=== PATIENT | female | born 2000 | race Hispanic/Latino ===

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

== ENCOUNTER 2023-10-27 15:50 | Emergency (ER) | payer SELFPAY ==
--- OUTSIDE RECORDS SUMMARY | 2023-10-27 15:55 | XMS REPORT | Continuity of Care Document ---
Author Name Unknown Address [address] [facility] [place] [address] [facility] Address [address] [facility] [place] [address] Care Team Providers Care Inorganic Chemist Name Role Phone URMILA HENAO Primary Care Physician Unav ailable URMILA HENAO Attending Clinician Unavail able Earlene WHUrmila ALCAZAR Attending Clinician + Doctor Unassigned, [place] Attending Clinician U navailable Catalina Hook Attending Clinician [phone] Nurse, Arnaldo Rmchp Exp Cprit Obgyn Attending Clini tima Unavailable CATALINA SCOTT Attending Clinician Unavailmike sebastian Provider, [facility] Temp Attending Clinician Hillary vailable Pgy1 Attending Clinician Unavailable Gio Ellis MD Attending Clinician [phone] GIO ELLIS Attending Clinician Unavail able MORE HOWARD Attending Clinician Unavaila ble Pgy2 Attending Clinician Unavailable Only, Arnaldo Db Test Attending Clinician UnavailEvgeny Escobar MD Attending Clinician [phone] EVGENY BENITO Attending Clinician Unavailable CHRIS HIGHTOWER Attending Clinician Unavailable Chris Montes Attending Clinician [phone] VAISHNAVI YEE Attending Clinician Unavailable Vaishnavi Yee DO Attending Clinician [phone] FELIZ TAY Attending Clinician UnavailCora Lares MD Attending Clinician [phone] KESHIA HARRISON Attending Clinician UnavailMIRYAM Gandhi Admitting Clinician Unavailable CODY PATTEN Admitting Clinician Unavailable Cora Garcia MD Admitting Clinician [phone] Payers Payer Name Policy Type Policy Number Effective Date Expirati on Date Source [employer]ICA[employer] [id number] 2018 00:00:00 Problems Condition Name Condition Details Condition Category Status Onset Date Resolution Date Last Treatment Date Treating Clinician Comments Source Other general counseling and advice for contracept lyudmila management Other general counseling and advice for contracept lyudmila management Disease Active 2- [facility] IUD (intrauter ine device) in place IUD (intrauter ine device) in place Disease Active 2-25 00:00: 00 [facility] Well woman exam Well woman exam Disease Active 2-04 00:00: 00 [facility] Obesity (BMI 30-39.9) Obesity (BMI 30-39.9) Disease Active 1-14 00:00: 00 [facility] Allergies, Adverse Reactions, Alerts Allergy Name Allergy Type Status Severity Reaction(s) Onset Date Inactive Date Treating Clinician Comments Source NO KNOWN ALLERGIE S Drug Class Active [facility] Social History Social Habit Start Date Stop Date Quantity Comments Source ASSERTION [facility] to SARS-CoV-2 (event) 2022-06-29 00:00:00 2022-07-09 13:52:[address] [facility] Alcohol intake 2022-07-09 00:00:00 2022-07-09 00:00:00 Current non-drinker of alcohol (finding) [facility] History of Social function 2022-07-09 00:00:00 2022-07-09 00:00:[address] [facility] Tobacco use and exposure 2022-06-11 00:00:00 2022-06-11 00:00:00 Smokeless tobacco non-user [facility] Sex Assigned At 2002 00:00:00 2002 00:00:[address] [facility] Smoking Status Start Date Stop Date Source Never smoked tobacco [facility] Medications Ordered Medication Name Filled Medication Name Start Date Stop Date Current Medication? Ordering Clinician Indication Dosage Frequency Signature (SIG) Comments Components Source levonorgest reL (KYLEENA) IUD 1 Device 3-10 23:15: 00 07-10 22:32 :00 No [id number] 1{devic e} [facility] norethindro ne-ethinyl estradiol (LOESTRIN 1/20, 21,) 1-20 mg-mcg per tablet 08-30 00:00: 00 Yes [id number] 1{tbl} Take 1 tablet by mouth daily. [facility] ondansetron (ZOFRAN ODT) 4 mg disintegrat ing tablet 2020-05 2 00:00: 00 Yes [id number] 4mg Take 1 tablet by mouth every 6 (six) hours as needed for Nausea and Vomiting (N/V). [facility] Immunizations Ordered Immunization Name Filled Immunization Name Date Status Comments Source HPV9 2021-07-03 00:00:[address] [facility] HPV9 2021-07-03 00:00:00 Completed [facility] 2021-07-03 00:00:00 Completed [facility] 2021-07-03 00:00:00 Completed [facility] 2021-07-03 00:00:[address] [facility] HPV9 2021-07-03 00:00:[address] [facility] HPV9 2021-07-03 00:00:[address] [facility] HPV9 2021-07-03 00:00:[address] [facility] HPV9 2021-07-03 00:00:00 Completed [facility] 2021-07-03 00:00:[address] [facility] HPV9 2021-07-03 00:00:00 Completed [facility] HPV9 2021-07-03 00:00:[address] [facility] HPV9 2021-07-03 00:00:[address] [facility] HPV9 2021-07-03 00:00:[address] [facility] HPV9 2020-06-28 00:00:[address] [facility] HPV9 2020-06-28 00:00:[address] [facility] HPV9 2020-06-28 00:00:[address] [facility] HPV9 2020-06-28 00:00:[address] [facility] HPV9 2020-06-28 00:00:[address] [facility] HPV9 2020-06-28 00:00:[address] [facility] HPV9 2020-06-28 00:00:[address] [facility] HPV9 2020-06-28 00:00:[address] [facility] HPV9 2020-06-28 00:00:[address] [facility] HPV9 2020-06-28 00:00:[address] [facility] HPV9 2020-06-28 00:00:[address] [facility] HPV9 2020-06-28 00:00:[address] [facility] HPV9 2020-06-28 00:00:[address] [facility] HPV9 2020-06-28 00:00:[address] [facility] TDAP 2020-03-16 00:00:[address] [facility] TDAP 2020-03-16 00:00:[address] [facility] TDAP 2020-03-16 00:00:[address] [facility] TDAP 2020-03-16 00:00:00 Completed [facility] TDAP 2020-03-16 00:00:00 Completed [facility] TDAP 2020-03-16 00:00:[address] [facility] TDAP 2020-03-16 00:00:[address] [facility] TDAP 2020-03-16 00:00:[address] [facility] TDAP 2020-03-16 00:00:[address] [facility] TDAP 2020-03-16 00:00:[address] [facility] TDAP 2020-03-16 00:00:[address] [facility] TDAP 2020-03-16 00:00:[address] [facility] TDAP 2020-03-16 00:00:[address] [facility] TDAP 2020-03-16 00:00:[address] [facility] Influenza Virus Vaccine Quad .5 mL IM 6+ MO 2020-02-17 00:00:[address] [facility] Influenza Virus Vaccine Quad .5 mL IM 6+ MO 2020-02-17 00:00:[address] [facility] Influenza Virus Vaccine Quad .5 mL IM 6+ MO 2020-02-17 00:00:[address] [facility] Influenza Virus Vaccine Quad .5 mL IM 6+ MO 2020-02-17 00:00:[address] [facility] Influenza Virus Vaccine Quad .5 mL IM 6+ MO 2020-02-17 00:00:[address] [facility] Influenza Virus Vaccine Quad .5 mL IM 6+ MO 2020-02-17 00:00:[address] [facility] Influenza Virus Vaccine Quad .5 mL IM 6+ MO 2020-02-17 00:00:[address] [facility] Influenza Virus Vaccine Quad .5 mL IM 6+ MO 2020-02-17 00:00:[address] [facility] Influenza Virus Vaccine Quad .5 mL IM 6+ MO 2020-02-17 00:00:[address] [facility] Influenza Virus Vaccine Quad .5 mL IM 6+ MO 2020-02-17 00:00:[address] [facility] Influenza Virus Vaccine Quad .5 mL IM 6+ MO 2020-02-17 00:00:[address] [facility] Influenza Virus Vaccine Quad .5 mL IM 6+ MO 2020-02-17 00:00:[address] [facility] Influenza Virus Vaccine Quad .5 mL IM 6+ MO 2020-02-17 00:00:[address] [facility] Influenza Virus Vaccine Quad .5 mL IM 6+ MO 2020-02-17 00:00:[address] [facility] Influenza Virus Vaccine Quad .5 mL IM 6+ MO 2019-02-11 00:00:[address] [facility] Influenza Virus Vaccine Quad .5 mL IM 6+ MO 2019-02-11 00:00:[address] [facility] Influenza Virus Vaccine Quad .5 mL IM 6+ MO 2019-02-11 00:00:[address] [facility] Influenza Virus Vaccine Quad .5 mL IM 6+ MO 2019-02-11 00:00:[address] [facility] Influenza Virus Vaccine Quad .5 mL IM 6+ MO 2019-02-11 00:00:[address] [facility] Influenza Virus Vaccine Quad .5 mL IM 6+ MO 2019-02-11 00:00:[address] [facility] Influenza Virus Vaccine Quad .5 mL IM 6+ MO 2019-02-11 00:00:[address] [facility] Influenza Virus Vaccine Quad .5 mL IM 6+ MO 2019-02-11 00:00:[address] [facility] Influenza Virus Vaccine Quad .5 mL IM 6+ MO 2019-02-11 00:00:[address] [facility] Influenza Virus Vaccine Quad .5 mL IM 6+ MO 2019-02-11 00:00:[address] [facility] Influenza Virus Vaccine Quad .5 mL IM 6+ MO 2019-02-11 00:00:[address] [facility] Influenza Virus Vaccine Quad .5 mL IM 6+ MO 2019-02-11 00:00:[address] [facility] Influenza Virus Vaccine Quad .5 mL IM 6+ MO 2019-02-11 00:00:[address] [facility] Influenza Virus Vaccine Quad .5 mL IM 6+ MO 2019-02-11 00:00:[address] [facility] TDAP (ADACEL) VACCINE 2018-12-17 00:00:[address] [facility] TDAP (ADACEL) VACCINE 2018-12-17 00:00:[address] [facility] TDAP (ADACEL) VACCINE 2018-12-17 00:00:[address] [facility] TDAP (ADACEL) VACCINE 2018-12-17 00:00:[address] [facility] TDAP (ADACEL) VACCINE 2018-12-17 00:00:[address] [facility] TDAP (ADACEL) VACCINE 2018-12-17 00:00:[address] [facility] TDAP (ADACEL) VACCINE 2018-12-17 00:00:[address] [facility] TDAP (ADACEL) VACCINE 2018-12-17 00:00:[address] [facility] TDAP (ADACEL) VACCINE 2018-12-17 00:00:[address] [facility] TDAP (ADACEL) VACCINE 2018-12-17 00:00:[address] [facility] TDAP (ADACEL) VACCINE 2018-12-17 00:00:[address] [facility] TDAP (ADACEL) VACCINE 2018-12-17 00:00:[address] [facility] TDAP (ADACEL) VACCINE 2018-12-17 00:00:[address] [facility] TDAP (ADACEL) VACCINE 2018-12-17 00:00:[address] [facility] HPV9 2015-12-03 00:00:[address] [facility] HPV9 2015-12-03 00:00:[address] [facility] Influenza Virus Vaccine Quad .5 mL IM 6+ MO 2014-02-17 00:00:[address] [facility] Influenza Virus Vaccine Quad .5 mL IM 6+ MO 2014-02-17 00:00:[address] [facility] HPV 2013-10-24 00:00:[address] [facility] Meningococcal Polysaccharide (groups A, C, Y and W-135) conjugate vaccine (MCV4P) 2013-10-24 00:00:[address] [facility] TDAP 2013-10-24 00:00:[address] [facility] Varicella (varivax)(chicken pox) 2013-10-24 00:00:[address] [facility] HPV 2013-10-24 00:00:[address] [facility] Meningococcal Polysaccharide (groups A, C, Y and W-135) conjugate vaccine (MCV4P) 2013-10-24 00:00:[address] [facility] TDAP 2013-10-24 00:00:[address] [facility] Varicella (varivax)(chicken pox) 2013-10-24 00:00:[address] [facility] HEPATITIS A 2005-02-04 00:00:[address] [facility] Pneumococcal 7 Conjugate, PCV7 (Prevnar7) 2005-02-04 00:00:[address] [facility] HEPATITIS A 2005-02-04 00:00:[address] [facility] Pneumococcal 7 Conjugate, PCV7 (Prevnar7) 2005-02-04 00:00:[address] [facility] DTaP, Unspecified Formulation 2004-01-10 00:00:[address] [facility] HIB 4 Dose Schedule 2004-01-10 00:00:[address] [facility] IPV 2004-01-10 00:00:[address] [facility] DTaP, Unspecified Formulation 2004-01-10 00:00:[address] [facility] HIB 4 Dose Schedule 2004-01-10 00:00:[address] [facility] IPV 2004-01-10 00:00:[address] [facility] MMR 2003-02-08 00:00:[address] [facility] Varicella (varivax)(chicken pox) 2003-02-08 00:00:[address] [facility] MMR 2003-02-08 00:00:[address] [facility] Varicella (varivax)(chicken pox) 2003-02-08 00:00:[address] [facility] Pneumococcal 7 Conjugate, PCV7 (Prevnar7) 2002 00:00:[address] [facility] Pneumococcal 7 Conjugate, PCV7 (Prevnar7) 2002 00:00:[address] [facility] DTaP, Unspecified Formulation 2002 00:00:[address] [facility] HIB 4 Dose Schedule 2002 00:00:[address] [facility] Pneumococcal 7 Conjugate, PCV7 (Prevnar7) 2002 00:00:[address] [facility] IPV 2002 00:00:[address] [facility] DTaP, Unspecified Formulation 2002 00:00:[address] [facility] HIB 4 Dose Schedule 2002 00:00:[address] [facility] Pneumococcal 7 Conjugate, PCV7 (Prevnar7) 2002 00:00:[address] [facility] IPV 2002 00:00:[address] [facility] Hep B, Adol or Pedi Dosage 2002 00:00:[address] [facility] Hep B, Adol or Pedi Dosage 2002 00:00:[address] [facility] TDAP (ADACEL) VACCINE Unknown Completed [facility] Influenza Virus Vaccine Quad .5 mL IM 6+ MO (FLUZONE/FLULAVAL/FL UARIX) Unknown Completed [facility] Influenza Virus Vaccine Quad .5 mL IM 6+ MO (FLUZONE/FLULAVAL/FL UARIX) Unknown Completed [facility] TDAP Unknown Completed [facility] DTaP, Unspecified Formulation Unknown Completed [facility] DTaP, Unspecified Formulation Unknown Completed [facility] Influenza Virus Vaccine Quad .5 mL IM 6+ MO (FLUZONE/FLULAVAL/FL UARIX) Unknown Completed [facility] HEPATITIS A Unknown Completed [facility] Hep B, Adol or Pedi Dosage Unknown Completed [facility] HIB 4 Dose Schedule Unknown Completed [facility] HIB 4 Dose Schedule Unknown Completed [facility] HPV Unknown Completed [facility] HPV9 Unknown Completed [facility] Meningococcal Polysaccharide (groups A, C, Y and W-135) conjugate vaccine (MCV4P) Unknown Completed [facility] MMR Unknown Completed [facility] Pneumococcal 7 Conjugate, PCV7 (Prevnar7) Unknown Completed [facility] Pneumococcal 7 Conjugate, PCV7 (Prevnar7) Unknown Completed [facility] Pneumococcal 7 Conjugate, PCV7 (Prevnar7) Unknown Completed [facility] IPV Unknown Completed [facility] IPV Unknown Completed [facility] TDAP Unknown Completed [facility] Varicella (varivax)(chicken pox) Unknown Completed [facility] Varicella (varivax)(chicken pox) Unknown Completed [facility] TDAP (ADACEL) VACCINE Unknown Completed [facility] Influenza Virus Vaccine Quad .5 mL IM 6+ MO (FLUZONE/FLULAVAL/FL UARIX) Unknown Completed [facility] Influenza Virus Vaccine Quad .5 mL IM 6+ MO (FLUZONE/FLULAVAL/FL UARIX) Unknown Completed [facility] TDAP Unknown Completed [facility] HPV9 Unknown Completed [facility] HPV9 Unknown Completed [facility] DTaP, Unspecified Formulation Unknown Completed [facility] DTaP, Unspecified Formulation Unknown Completed [facility] Influenza Virus Vaccine Quad .5 mL IM 6+ MO (FLUZONE/FLULAVAL/FL UARIX) Unknown Completed [facility] HEPATITIS A Unknown Completed [facility] Hep B, Adol or Pedi Dosage Unknown Completed [facility] HIB 4 Dose Schedule Unknown Completed [facility] HIB 4 Dose Schedule Unknown Completed [facility] HPV Unknown Completed [facility] HPV9 Unknown Completed [facility] Meningococcal Polysaccharide (groups A, C, Y and W-135) conjugate vaccine (MCV4P) Unknown Completed [facility] MMR Unknown Completed [facility] Pneumococcal 7 Conjugate, PCV7 (Prevnar7) Unknown Completed [facility] Pneumococcal 7 Conjugate, PCV7 (Prevnar7) Unknown Completed [facility] Pneumococcal 7 Conjugate, PCV7 (Prevnar7) Unknown Completed [facility] IPV Unknown Completed [facility] IPV Unknown Completed [facility] TDAP Unknown Completed [facility] Varicella (varivax)(chicken pox) Unknown Completed [facility] Varicella (varivax)(chicken pox) Unknown Completed [facility] TDAP (ADACEL) VACCINE Unknown Completed [facility] Influenza Virus Vaccine Quad .5 mL IM 6+ MO (FLUZONE/FLULAVAL/FL UARIX) Unknown Completed [facility] Influenza Virus Vaccine Quad .5 mL IM 6+ MO (FLUZONE/FLULAVAL/FL UARIX) Unknown Completed [facility] TDAP Unknown Completed [facility] HPV9 Unknown Completed [facility] HPV9 Unknown Completed [facility] DTaP, Unspecified Formulation Unknown Completed [facility] DTaP, Unspecified Formulation Unknown Completed [facility] Influenza Virus Vaccine Quad .5 mL IM 6+ MO (FLUZONE/FLULAVAL/FL UARIX) Unknown Completed [facility] HEPATITIS A Unknown Completed [facility] Hep B, Adol or Pedi Dosage Unknown Completed [facility] HIB 4 Dose Schedule Unknown Completed [facility] HIB 4 Dose Schedule Unknown Completed [facility] HPV Unknown Completed [facility] HPV9 Unknown Completed [facility] Meningococcal Polysaccharide (groups A, C, Y and W-135) conjugate vaccine (MCV4P) Unknown Completed [facility] MMR Unknown Completed [facility] Pneumococcal 7 Conjugate, PCV7 (Prevnar7) Unknown Completed [facility] Pneumococcal 7 Conjugate, PCV7 (Prevnar7) Unknown Completed [facility] Pneumococcal 7 Conjugate, PCV7 (Prevnar7) Unknown Completed [facility] IPV Unknown Completed [facility] IPV Unknown Completed [facility] TDAP Unknown Completed [facility] Varicella (varivax)(chicken pox) Unknown Completed [facility] Varicella (varivax)(chicken pox) Unknown Completed [facility] Vital Signs Vital Name Observation Time Observation Value Comments S ource Systolic blood pressure 2023-02-17 18:31:00 110 mm[Hg] [facility] Diastolic blood pressure 2023-02-17 18:31:00 72 mm[Hg] [facility] Heart rate 2023-02-17 18:31:00 86 /min [facility] Body temperature 2023-02-17 18:31:[address] [facility] Respiratory rate 2023-02-17 18:31:00 17 /min [facility] Body height 2023-02-17 18:31:00 149.9 cm [facility] Body weight 2023-02-17 18:31:00 75.025 kg [facility] BMI 2023-02-17 18:31:00 33.41 kg/m2 [facility] Systolic blood pressure 2022-07-09 19:52:00 103 mm[Hg] [facility] Diastolic blood pressure 2022-07-09 19:52:00 68 mm[Hg] [facility] Heart rate 2022-07-09 19:52:00 81 /min [facility] Body temperature 2022-07-09 19:52:[address] [facility] Respiratory rate 2022-07-09 19:52:00 18 /min [facility] Body height 2022-07-09 19:52:00 149.9 cm [facility] Body weight 2022-07-09 19:52:00 73.392 kg [facility] BMI 2022-07-09 19:52:00 32.68 kg/m2 [facility] Systolic blood pressure 2022-06-11 15:45:00 120 mm[Hg] [facility] Diastolic blood pressure 2022-06-11 15:45:00 75 mm[Hg] [facility] Heart rate 2022-06-11 15:45:00 85 /min [facility] Body temperature 2022-06-11 15:45:[address] [facility] Respiratory rate 2022-06-11 15:45:00 18 /min [facility] Body height 2022-06-11 15:45:00 149.9 cm [facility] Body weight 2022-06-11 15:45:00 70.943 kg [facility] BMI 2022-06-11 15:45:00 31.59 kg/m2 [facility] Systolic blood pressure 2021-08-30 19:04:00 123 mm[Hg] [facility] Diastolic blood pressure 2021-08-30 19:04:00 85 mm[Hg] [facility] Heart rate 2021-08-30 19:04:00 96 /min [facility] Body temperature 2021-08-30 19:04:[address] [facility] Body height 2021-08-30 19:04:00 149.9 cm [facility] Body weight 2021-08-30 19:04:00 75.116 kg [facility] BMI 2021-08-30 19:04:00 33.45 kg/m2 [facility] Body mass index (BMI) [Percentile] Per age and sex 2021-08-30 19:04:00 96.41 % [facility] Procedures Procedure Date / Time Performed Performing Clinicia n Source POCT TEST 2022-07-09 19:54:00 Earl Henao [facility] PATIENT FINANCIAL POLICY 2022-07-09 19:38:04 Doctor Unassigned, [place] [facility] POCT TEST 2022-06-11 16:16:[address] [facility] ASSIGNMENT OF BENEFITS 2022-06-11 15:19:02 Docto r Unassigned, [place] [facility] DISCLOSURE AND CONSENT, MEDICAL AND SURGICAL PROCEDURES 2021-08-30 05:01:00 Doctor Unassigned, [place] [facility] Encounters Start Date/Time End Date/Time Encounter Type Admission Type Attending [facility] Emergency Department Facility Care Department Encounter ID Source 2021-03-03 16:31:27 Emergency [facility] [id number] [facility] 2021-03-02 07:53:51 Outpatient P [facility] [id number] [facility] 2021-03-02 07:53:31 Outpatient P [facility] OB [id number] [facility] 2021-03-02 04:35:47 Outpatient P [facility] KENNETH [id number] [facility] 2023-07-13 14:30:00 2023-07-13 14:30:00 Outpatient R URMILA HENAO [facility] [id number] [facility] 2023-02-17 13:30:00 2023-02-17 13:57:49 Outpatient R URMILA HENAO [facility] [id number] [facility] 2023-02-17 13:30:00 2023-02-17 13:57:49 Office Visit Urmila Henao [facility] 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 [facility] [id number] 350.1.13.10 4.2.7.2.686 [id number] [facility] 2022-12-10 08:15:00 2022-12-10 08:15:00 Outpatient R URMILA HENAO [facility] [id number] [facility] 2022-10-15 13:30:00 2022-10-15 13:30:00 Outpatient R URMILA HENAO [facility] [id number] [facility] 2022-08-20 08:00:00 2022-08-20 08:00:00 Outpatient R URMILA HENAO [facility] [id number] [facility] 2022-07-09 13:45:00 2022-07-09 14:37:02 Outpatient R URMILA HENAO [facility] [id number] [facility] 2022-07-09 13:45:00 2022-07-09 14:37:02 Office Visit Urmila Henao [facility] 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 [facility]ILD [facility] 1.840.114 350.1.13.10 4.2.7.2.686 [id number] [facility] 2022-07-09 00:00:00 2022-07-09 00:00:00 Orders Only Doctor Unassigned, [place] [facility] 1.840.114 350.1.13.10 4.2.7.2.686 [id number] [facility] 2022-06-11 09:30:00 2022-06-11 10:17:06 Outpatient R URMILA HENAO [facility] [id number] [facility] 2022-06-11 09:30:00 2022-06-11 10:17:06 Office Visit Urmila Henao [facility] 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 [facility] 1.840.114 350.1.13.10 4.2.7.2.686 [id number] [facility] 2022-06-11 00:00:00 2022-06-11 00:00:00 Orders Only Doctor Unassigned, [place] [facility] 1.840.114 350.1.13.10 4.2.7.2.686 [id number] [facility] 2022-04-16 00:00:00 2022-04-16 00:00:00 Catalina Bonilla [facility] .0.114 350.1.13.10 4.2.7.2.686 [id number] [facility] 2022-02-19 09:30:00 2022-02-19 09:30:00 Outpatient R URMILA HENAO [facility] [id number] [facility] 2021-12-18 15:00:00 2021-12-18 15:00:00 Outpatient R [facility] [id number] [facility] 2021-12-16 00:00:00 2021-12-16 00:00:00 Telephone Nurse, Arnaldo Rmchp Exp Cprit Obgyn [facility] 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 [facility] ..840.114 350.1.13.10 4.2.7.2.686 [id number] [facility] 2021-12-05 15:30:00 2021-12-05 15:30:00 Outpatient R [facility] [id number] [facility] 2021-12-04 15:00:00 2021-12-04 15:00:00 Outpatient R URMILA HENAO [facility] [id number] [facility] 2021-12-04 00:00:00 2021-12-04 00:00:00 Telephone Urmila Henao [facility] 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 [facility] .840.114 350.1.13.10 4.2.7.2.686 [id number] [facility] 2021-11-29 09:00:00 2021-11-29 09:00:00 Outpatient R URMILA HENAO [facility] [id number] [facility] 2021-11-06 13:00:00 2021-11-06 13:00:00 Outpatient R URMILA HENAO [facility] [id number] [facility] 2021-08-30 13:30:00 2021-08-30 14:53:54 Outpatient R CATALINA SCOTT EMILY [facility] [id number] [facility] 2021-08-30 13:30:00 2021-08-30 14:53:54 Office Visit Provider, [facility] Catalina Harding [facility] 1.2840.114 350.1.13.10 4.2.7.2.686 [id number] [facility] 2021-08-30 00:00:00 2021-08-30 00:00:00 Orders Only Doctor Unassigned, [place] [facility] 1.2.840.114 350.1.13.10 4.2.7.2.686 [id number] [facility] 2021-08-25 00:00:00 2021-08-25 00:00:00 Telephone Pgy1 [facility] 1.2.840.114 350.1.13.10 4.2.7.2.686 [id number] [facility] 2021-08-08 10:00:00 2021-08-08 11:17:38 [facility] 1..840.114 350.1.13.10 4.2.7.2.686 [id number] [facility] 2021-08-08 10:00:00 2021-08-08 11:17:38 Outpatient R GIO ELLIS [facility] [id number] [facility] 2021-08-08 10:00:00 2021-08-08 11:17:38 Outpatient R GIO ELLIS [facility] [id number] [facility] 2021-08-08 10:00:00 2021-08-08 10:00:00 Outpatient R GIO ELLIS [facility] [id number] [facility] 2021-08-08 00:00:00 2021-08-08 00:00:00 Orders Only Doctor Unassigned, [place] [facility] 1..114 350.1.13.10 4.2.7.2.686 [id number] [facility] 2021-07-25 09:00:00 2021-07-25 09:00:00 Outpatient R MORE HOWARD [facility] [id number] [facility] 2021-07-25 00:00:00 2021-07-25 00:00:00 Telephone Pgy2 [facility] 1..114 350.1.13.10 4.2.7.2.686 [id number] [facility] 2021-07-24 09:45:00 2021-07-24 09:45:00 Outpatient R URMILA HENAO [facility] [id number] [facility] 2021-07-03 13:45:00 2021-07-03 15:07:17 Office Visit Urmila Henao [facility] 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 [facility] 1.840.114 350.1.13.10 4.2.7.2.686 [id number] [facility] 2021-07-03 13:45:00 2021-07-03 15:07:17 Outpatient R URMILA HENAO [facility] [id number] [facility] 2021-07-03 13:45:00 2021-07-03 13:45:00 Outpatient R URMILA HENAO [facility] [id number] [facility] 2021-07-03 00:00:00 2021-07-03 00:00:00 Letter (Out) Urmila Henao [facility] 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 [facility] .840.114 350.1.13.10 4.2.7.2.686 [id number] [facility] 2021-07-02 00:00:00 2021-07-02 00:00:00 Telephone Urmila Henao [facility] 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 [facility] 1.20.114 350.1.13.10 4.2.7.2.686 [id number] [facility] 2021-05-10 19:15:00 2021-05-10 19:30:00 Laboratory Only Only, Ang Db Test Sathya [facility] 1..114 350.1.13.10 4.2.7.2.686 [id number] [facility] 2021-05-10 19:15:00 2021-05-10 19:15:00 Outpatient R SATHYA [facility] [id number] [facility] 2021-05-03 13:59:00 2021-05-03 15:08:00 Emergency CHRIS COLEY [facility] ERT [id number] [facility] 2021-05-03 13:59:00 2021-05-03 15:08:00 Emergency Hightower, Chris R [facility] 1..114 350.1.13.10 4.2.7.2.686 [id number] [facility] 2021-05-03 00:00:00 2021-05-03 00:00:00 Orders Only Doctor Unassigned, [place] [facility] 1..114 350.1.13.10 4.2.7.2.686 [id number] [facility] 2021-04-19 21:34:00 2021-04-19 22:26:00 Emergency X VAISHNAVI YEE [facility] ERT [id number] [facility] 2021-04-19 21:34:00 2021-04-19 22:26:00 Emergency Vaishnavi Yee [facility] 1.2.840.114 350.1.13.10 4.2.7.2.686 [id number] [facility] 2020-12-31 08:15:00 2020-12-31 08:15:00 Outpatient R TATIANNAMORRIS URMILA [facility] [id number] [facility] 2020-12-19 17:00:00 2020-12-19 17:00:00 Outpatient R FELIZ TAY [facility] [id number] [facility] 2020-10-11 15:45:00 2020-10-11 15:45:00 Outpatient R AKINSIHANK URMILA [facility] [id number] [facility] 2020-10-08 09:30:00 2020-10-08 09:30:00 Outpatient R AKINSIPE UMRILA [facility] [id number] [facility] 2020-09-18 15:15:00 2020-09-18 15:15:00 Outpatient R AKINSIPE, URMILA [facility] [id number] [facility] 2020-09-04 16:00:00 2020-09-04 16:00:00 Outpatient R AKINSIPE URMILA [facility] [id number] [facility] 2020-08-29 15:45:00 2020-08-29 15:45:00 Outpatient R [facility] [id number] [facility] 2020-08-27 10:45:00 2020-08-27 10:45:00 Outpatient R AKINSIPE, URMILA [facility] [id number] [facility] 2020-08-24 13:15:00 2020-08-24 13:15:00 Outpatient R AKINSIPE, URMILA [facility] [id number] [facility] 2020-08-09 15:15:00 2020-08-09 15:15:00 Outpatient R AKINSIPE, URMILA [facility] [id number] [facility] 2020-06-28 09:30:00 2020-06-28 09:30:00 Outpatient R URMILA HENAO [facility] [id number] [facility] 2020-06-07 09:29:24 2020-06-07 10:11:02 Routine Visit Urmila Henao [facility] 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 [facility] 1..840.114 350.1.13.10 4.2.7.2.686 [id number] 2020-06-07 09:30:00 2020-06-07 09:30:00 Outpatient R URMILA HENAO [facility] [id number] [facility] 2020-05-24 11:00:00 2020-05-24 11:00:00 Outpatient R URMILA HENAO [facility] [id number] [facility] 2020-05-22 00:00:00 2020-05-22 00:00:00 Patient Secure Msg Doctor Unassigned, [place] [facility] 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 [facility] 1.840.114 350.1.13.10 4.2.7.2.686 [id number] [facility] 2020-05-17 15:09:00 2020-05-19 20:26:00 Hospital Encounter Cora Garcia [facility] 1.84.114 350.1.13.10 4.2.7.2.686 [id number] 2020-05-17 15:30:00 2020-05-17 15:30:00 Outpatient R URMILA HENAO [facility] [id number] [facility] 2020-05-17 13:00:13 2020-05-17 13:42:47 Routine Visit Urmila Henao [facility] 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 [facility] 1.840.114 350.1.13.10 4.2.7.2.686 [id number] 2020-05-10 11:00:00 2020-05-10 11:00:00 Outpatient R AKINSIURMILA MCKINNEY [facility] [id number] [facility] 2020-04-24 16:00:00 2020-04-24 16:00:00 Outpatient R AKINSIPEURMILA [facility] [id number] [facility] 2020-04-24 14:15:00 2020-04-24 14:15:00 Outpatient R AKINSIPEURMILA [facility] [id number] [facility] 2020-04-11 12:45:00 2020-04-11 12:45:00 Outpatient R AKINSIPEURMILA [facility] [id number] [facility] 2020-03-27 15:00:00 2020-03-27 15:00:00 Outpatient R AKINSIPEURMILA [facility] [id number] [facility] 2020-03-16 15:00:00 2020-03-16 15:00:00 Outpatient R AKINSIPEURMILA [facility] [id number] [facility] 2020-03-08 11:30:00 2020-03-08 11:30:00 Outpatient P [facility] [id number] [facility] 2020-03-02 11:00:00 2020-03-02 11:00:00 Outpatient R AKINSIPEURMILA [facility] [id number] [facility] 2020-02-17 10:45:00 2020-02-17 10:45:00 Outpatient R AKINSIPEURMILA [facility] [id number] [facility] 2020-01-20 14:15:00 2020-01-20 14:15:00 Outpatient R AKINSIPEURMILA [facility] [id number] [facility] 2020-01-17 13:00:00 2020-01-17 13:00:00 Outpatient P [facility] [id number] [facility] 2020-01-16 10:45:00 2020-01-16 10:45:00 Outpatient P [facility] [id number] [facility] 2020-01-12 10:45:00 2020-01-12 10:45:00 Outpatient P [facility] [id number] [facility] 2019-12-23 14:00:00 2019-12-23 14:00:00 Outpatient R URMILA HENAO [facility] [id number] [facility] 2019-12-02 11:30:00 2019-12-02 11:30:00 Outpatient P [facility] [id number] [facility] 2019-11-25 13:00:00 2019-11-25 13:00:00 Outpatient R URMILA HENAO [facility] [id number] [facility] 2019-11-18 09:00:00 2019-11-18 09:00:00 Outpatient R KESHIA HARRISON [facility] [id number] [facility] Results Test Description Test Time Test Comments Results Result Co mments Source [facility] [id number] 19:54:00* Test Item Value Reference Range Interpretation Comme [facility] POCT PREG (test code = 1605) Negative On board controls acceptable with C Line (test code = 3574) Yes POCT PREG LOT # (test code = 3575) POCT PREG TEST DATE ( test code = 3576) [facility] [id number] 16:17:00* Test Item Value Reference Range Interpretation Comme nts POCT PREG (test code = 1605) Negative On board controls acceptable with C Line (test code = 3574) Yes POCT PREG LOT # (test code = 3575) POCT PREG TEST DATE ( test code = 3576) [facility] [id number] 16:17:00* Test Item Value Reference Range Interpretation Comme nts POCT PREG (test code = 1605) Negative On board controls acceptable with C Line (test code = 3574) Yes POCT PREG LOT # (test code = 3575) PO[facility] PREG TEST DATE ( test [facility] = 3576[id number] 16:17:00* Test Item Value Reference Range Interpretation Comme nts POCT PREG (test code = 1605) Negative On board controls acceptable with C Line (test code = 3574) Yes POCT PREG LOT # (test code = 3575) POCT PREG TEST DATE ( test code = 3576) [facility] [id number] 16:17:00* Test Item Value Reference Range Interpretation Comme nts POCT PREG (test code = 1605) Negative On board controls acceptable with C Line (test code = 3574) Yes POCT PREG LOT # (test code = 3575) POCT PREG TEST DATE ( test code = 3576) [facility]
--- NOTE | 2023-10-27 16:15 | EDPHYS ---
Physician Documentation [facility] Name: Gianna Haines Age: 23 yrs Sex: Female : 2000 Arrival Date: 10/27/2023 Time: 15:50 Bed DX1 Private MD: KATHY Physician Jeronimo Bashir HPI: 10/26 16:17 This 23 yrs old Female presents to ER via Ambulatory with complaints of Ear sb4 Pain. 16:17 The patient presents with hearing loss, partial, pain. The complaints affect the left sb4 ear. Onset: The symptoms/episode began/occurred 2 week(s) ago. Modifying factors: The symptoms are alleviated by nothing, the symptoms are aggravated by nothing. Associated signs and symptoms: The patient has no apparent associated signs or symptoms. The patient has experienced a previous episode, many years ago. Historical: - Allergies: 16:03 No Known Allergies; mb9 - Home Meds: 16:03 None [Active]; mb9 - PMHx: 16:03 Asthma; mb9 - PSHx: 16:03 section; mb9 - Immunization history:: Adult Immunizations up to date. - Infectious Disease History:: Denies. - Social history:: Smoking status: Patient denies any tobacco usage or history of. ROS: 16:17 Constitutional: Negative for fever, chills, and weight loss, sb4 16:17 ENT: Positive for ear pain, hearing loss, 16:17 All other systems are negative, Exam: 16:17 Constitutional: This is a well developed, well nourished patient who is awake, alert, sb4 and in no acute distress. Head/Face: Normocephalic, atraumatic. Eyes: Extra-ocular motions intact. Periorbital areas with no swelling, redness, or edema. Skin: Warm, dry with normal turgor. Normal color with no rashes, no lesions, and no evidence of cellulitis. 16:17 ENT: Ear canal(s): erythema, that is moderate, of the left canal, TM's: normal right, cannot visualize left due to cerumen, Vital Signs: 16:03 BP 131 / 75; Pulse 89; Resp 18; Temp 97.8; Pulse Ox 100% ; Weight 74.84 kg; Height 4 mb9 ft. 11 in. ; Pain 6/10; 16:03 Body Mass Index 33.33 (74.84 kg, 149.86 cm) mb9 16:03 Pain Scale: Adult mb9 MDM: 16:04 Patient medically screened. sb4 16:18 Data reviewed: vital signs, nurses notes, and as a result, I will discharge patient. sb4 Counseling: I had a detailed discussion with the patient and/or guardian regarding the historical points, exam findings, and any diagnostic results supporting the discharge/admit diagnosis, to return to the emergency department if symptoms worsen or persist or if there are any questions or concerns that arise at home. Administered Medications: 16:21 Drug: Exkccixm-Bbzngllgn-ME Otic Drops 4 drops Otic once; left ear, let patient keep as6 bottle Route: Otic; Site: left ear; 16:22 Follow up: Response: No adverse reaction as6 Disposition Summary: 10/27/23 16:13 Discharge Ordered Notes: Instill 4 drops into left ear 3 times a day for 7 days. Location: Home sb4 Problem: new sb4 Symptoms: are unchanged sb4 Condition: Stable sb4 Diagnosis - Other otitis externa, left ear sb4 - Otitis media, unspecified, left ear sb4 Followup: sb4 - With: Emergency Department - When: As needed - Reason: Trouble breathing, Worsening of condition Discharge Instructions: - Discharge Summary Sheet sb4 - Otitis Media, Adult sb4 - Otitis Externa, Nsru-mn-Wahz sb4 Forms: - Antibiotic Education sb4 - Patient Portal Instructions sb4 - Leadership Thank You Letter sb4 Prescriptions: - Amoxicillin 875 mg Oral Tablet - take 1 tablet ORAL route every 12 hours for 10 days; 20 tablet; Refills: 0, sb4 Product Selection Permitted Signatures: Leonel Cheatham, RN RN as6 Emilie Shepherd PA-C PANida sbCeleste West RN RN mb9
--- NOTE | 2023-10-27 16:15 | ER ---
Nurse's Notes [facility] Name: Gianna Haines Age: 23 yrs Sex: Female : 2000 Arrival Date: 10/27/2023 Time: 15:50 Bed DX1 Private MD: Diagnosis: Other otitis externa, left ear;Otitis media, unspecified, left ear Presentation: 10/26 16:03 Chief complaint: Patient states: "For the past 2 weeks, I've had left ear pain.". mb9 Coronavirus screen: At this time, the client does not indicate any symptoms associated with coronavirus-19. Ebola Screen: No symptoms or risks identified at this time. Initial Sepsis Screen: Does the patient meet any 2 criteria? No. Patient's initial sepsis screen is negative. Does the patient have a suspected source of infection? No. Patient's initial sepsis screen is negative. Risk Assessment: Do you want to hurt yourself or someone else? Patient reports no desire to harm self or others. Onset of symptoms was October 27, 2023. 16:03 Acuity: FLIP 4 mb9 16:03 Method Of Arrival: Ambulatory mb9 Triage Assessment: 16:04 General: Appears in no apparent distress. Behavior is calm, cooperative. Pain: mb9 Complains of pain in left ear. EENT: Ear canal clear on right ear and left ear. Neuro: Aranda Agitation-Sedation Scale (RASS): 0 - Alert and Calm Level of Consciousness is awake, alert, obeys commands, Oriented to person, place, time, situation, Appropriate for age. Cardiovascular: Patient's skin is warm and dry. Respiratory: Airway is patent Respiratory effort is even, unlabored, Respiratory pattern is regular, symmetrical. : No signs and/or symptoms were reported regarding the genitourinary system. Derm: Skin is pink, warm \\T\\ dry. Musculoskeletal: Range of motion: intact in all extremities. Historical: - Allergies: 16:03 No Known Allergies; mb9 - Home Meds: 16:03 None [Active]; mb9 - PMHx: 16:03 Asthma; mb9 - PSHx: 16:03 section; mb9 - Immunization history:: Adult Immunizations up to date. - Infectious Disease History:: Denies. - Social history:: Smoking status: Patient denies any tobacco usage or history of. Screenin:22 [facility] ED Fall Risk Assessment (Adult) History of falling in the last 3 months, as6 including since admission No falls in past 3 months (0 pts) Confusion or Disorientation No (0 pts) Intoxicated or Sedated No (0 pts) Impaired Gait No (0 pts) Mobility Assist Device Used No (0 pt) Altered Elimination No (0 pt) Score/Fall Risk Level 0 - 2 = Low Risk Oriented to surroundings, Maintained a safe environment, Educated pt \\T\\ family on fall prevention, incl call for assistance when getting out of bed, Assessed \\T\\ reinforced patient's understanding of fall precautions. Abuse screen: Denies threats or abuse. Denies injuries from another. Nutritional screening: No deficits noted. Tuberculosis screening: No symptoms or risk factors identified. Vital Signs: 16:03 BP 131 / 75; Pulse 89; Resp 18; Temp 97.8; Pulse Ox 100% ; Weight 74.84 kg; Height 4 mb9 ft. 11 in. ; Pain 6/10; 16:03 Body Mass Index 33.33 (74.84 kg, 149.86 cm) mb9 16:03 Pain Scale: Adult mb9 ED Course: 15:52 Patient arrived in ED. mr 15:53 Emilie Shepherd PA-C is PHCP. sb4 15:53 Jeronimo Bashir MD is Attending Physician. sb4 16:03 Triage completed. mb9 16:03 Arm band placed on. mb9 16:22 Bed in low position. Call light in reach. Provided Education on: follow up. as6 16:22 No provider procedures requiring assistance completed. Patient did not have IV access as6 during this emergency room visit. Administered Medications: 16:21 Drug: Nyecyodv-Clgpvosco-KK Otic Drops 4 drops Otic once; left ear, let patient keep as6 bottle Route: Otic; Site: left ear; 16:22 Follow up: Response: No adverse reaction as6 Medication: 16:23 VIS not applicable for this client. as6 Outcome: 16:13 Discharge ordered by . sb4 16:22 Discharged to home ambulatory, as6 16:22 Condition: stable 16:22 Discharge instructions given to patient, Instructed on discharge instructions, follow up and referral plans. medication usage, Demonstrated understanding of instructions, follow-up care, medications, Prescriptions given X 1, 16:23 Patient left the ED. as6 Signatures: Celeste Lira, Reg Reg Leonel Ramirez, RN RN as6 Emilie Shepherd PA-C PA-C sb4 Celeste Robles RN RN mb9
[2023-10-27] MEDS ORDERED: NEOMY/POLY/HC 1% OTIC DROPS ONE (16:17)
[2023-10-27 17:06] VITALS: BP 131/75; TEMP 97.8; O2SAT 100
== END 2023-10-27 16:23 | disposition home or self-care (01) ==
LOC: ER 15:50
DX: H60.8X2 Other otitis externa, left ear (principal); H66.92 Otitis media, unspecified, left ear

== ENCOUNTER 2023-11-07 00:30 | Emergency (ER) | payer SELFPAY ==
--- OUTSIDE RECORDS SUMMARY | 2023-11-07 00:34 | XMS REPORT | Continuity of Care Document ---
Author Name Unknown Address [address] [place] [address] [facility] thconnect Address [address] [place] [address] Care Team Providers Care Floor Technician Name Role Phone URMILA HENAO Primary Care Physician Unav ailable URMILA HENAO Attending Clinician Unavail able Earlene WHUrmila ALCAZAR Attending Clinician + Doctor Unassigned, [place] Attending Clinician U navailable Catalina Hook Attending Clinician [phone] Nurse, Arnaldo [facility] Obgyn Attending Clini tima Unavailable CATALINA SCOTT Attending Clinician Unavailmike sebastian Provider, [facility] Temp Attending Clinician Hillary vailable Pgy1 Attending Clinician Unavailable Gio Ellis MD Attending Clinician [phone] GIO ELLIS Attending Clinician Unavail able MORE HOWARD Attending Clinician Unavaila ble Pgy2 Attending Clinician Unavailable Only, Arnaldo Db Test Attending Clinician UnavailEvgeny Esocbar MD Attending Clinician [phone] EVGENY BENITO Attending Clinician Unavailable CHRIS HIGHTOWER Attending Clinician Unavailable Chris Montes Attending Clinician [phone] VAISHNAVI YEE Attending Clinician Unavailable Vaishnavi Yee DO Attending Clinician [phone] FELIZ TAY Attending Clinician UnavailCora Lares MD Attending Clinician [phone] KESHIA HARRISON Attending Clinician UnavailMIRYAM Gandhi Admitting Clinician Unavailable CODY PATTEN Admitting Clinician Unavailable Cora Garcia MD Admitting Clinician [phone] Payers Payer Name Policy Type Policy Number Effective Date Expirati on Date Source [employer] MEDICA[employer] [id number] 2018 00:00:00 Problems Condition Name Condition Details Condition Category Status Onset Date Resolution Date Last Treatment Date Treating Clinician Comments Source Other general counseling and advice for contracept lyudmila management Other general counseling and advice for contracept lyudmila management Disease Active 2- 00:00: 00 [facility] IUD (intrauter ine device) in place IUD (intrauter ine device) in place Disease Active 2-25 00:00: 00 [facility] Well woman exam Well woman exam Disease Active 2-04 00:00: 00 [facility] Obesity (BMI 30-39.9) Obesity (BMI 30-39.9) Disease Active 1-14 00:00: 00 [facility] Allergies, Adverse Reactions, Alerts Allergy Name Allergy Type Status Severity Reaction(s) Onset Date Inactive Date Treating Clinician Comments Source NO KNOWN ALLERGIE S Drug Class Active [facility] Social History Social Habit Start Date Stop Date Quantity Comments Source ASSERTION [facility] to SARS-CoV-2 (event) 2022-06-29 00:00:00 2022-07-09 13:52:00 Not sure [facility] Alcohol intake 2022-07-09 00:00:00 2022-07-09 00:00:00 Current non-drinker of alcohol (finding) [facility] History of Social function 2022-07-09 00:00:00 2022-07-09 00:00:00 [facility] Tobacco use and exposure 2022-06-11 00:00:00 2022-06-11 00:00:00 Smokeless tobacco non-user [facility] Sex Assigned At 2002 00:00:00 2000 00:00:00 [facility] Smoking Status Start Date Stop Date Source Never smoked tobacco [facility] Medications Ordered Medication Name Filled Medication Name Start Date Stop Date Current Medication? Ordering Clinician Indication Dosage Frequency Signature (SIG) Comments Components Source levonorgest reL (KYLEENA) IUD 1 Device 3-10 23:15: 00 07-10 22:32 :00 No [id number] 1{devic e} [facility] norethindro ne-ethinyl estradiol (LOESTRIN 1/20, 21,) 1-20 mg-mcg per tablet 08-30 00:00: 00 Yes [id number] 1{tbl} Take 1 tablet by mouth daily. [facility] ondansetron (ZOFRAN ODT) 4 mg disintegrat ing tablet 2020-05 2 00:00: 00 Yes [id number] 4mg Take 1 tablet by mouth every 6 (six) hours as needed for Nausea and Vomiting (N/V). [facility] Immunizations Ordered Immunization Name Filled Immunization Name Date Status Comments Source HPV9 2021-07-03 00:00:00 Completed [facility] HPV9 2021-07-03 00:00:00 Completed [facility] 2021-07-03 00:00:00 Completed [facility] 2021-07-03 00:00:00 Completed [facility] 2021-07-03 00:00:00 Completed [facility] HPV9 2021-07-03 00:00:00 Completed [facility] HPV9 2021-07-03 00:00:00 Completed [facility] HPV9 2021-07-03 00:00:00 Completed [facility] HPV9 2021-07-03 00:00:00 Completed [facility] 2021-07-03 00:00:00 Completed [facility] HPV9 2021-07-03 00:00:00 Completed [facility] HPV9 2021-07-03 00:00:00 Completed [facility] HPV9 2021-07-03 00:00:00 Completed [facility] HPV9 2021-07-03 00:00:00 Completed [facility] HPV9 2020-06-28 00:00:00 Completed [facility] HPV9 2020-06-28 00:00:00 Completed [facility] HPV9 2020-06-28 00:00:00 Completed [facility] HPV9 2020-06-28 00:00:00 Completed [facility] HPV9 2020-06-28 00:00:00 Completed [facility] HPV9 2020-06-28 00:00:00 Completed [facility] HPV9 2020-06-28 00:00:00 Completed [facility] HPV9 2020-06-28 00:00:00 Completed [facility] HPV9 2020-06-28 00:00:00 Completed [facility] HPV9 2020-06-28 00:00:00 Completed [facility] HPV9 2020-06-28 00:00:00 Completed [facility] HPV9 2020-06-28 00:00:00 Completed [facility] HPV9 2020-06-28 00:00:00 Completed [facility] HPV9 2020-06-28 00:00:00 Completed [facility] TDAP 2020-03-16 00:00:00 Completed [facility] TDAP 2020-03-16 00:00:00 Completed [facility] TDAP 2020-03-16 00:00:00 Completed [facility] TDAP 2020-03-16 00:00:00 Completed [facility] TDAP 2020-03-16 00:00:00 Completed [facility] TDAP 2020-03-16 00:00:00 Completed [facility] TDAP 2020-03-16 00:00:00 Completed [facility] TDAP 2020-03-16 00:00:00 Completed [facility] TDAP 2020-03-16 00:00:00 Completed [facility] TDAP 2020-03-16 00:00:00 Completed [facility] TDAP 2020-03-16 00:00:00 Completed [facility] TDAP 2020-03-16 00:00:00 Completed [facility] TDAP 2020-03-16 00:00:00 Completed [facility] TDAP 2020-03-16 00:00:00 Completed [facility] Influenza Virus Vaccine Quad .5 mL IM 6+ MO 2020-02-17 00:00:00 Completed [facility] Influenza Virus Vaccine Quad .5 mL IM 6+ MO 2020-02-17 00:00:00 Completed [facility] Influenza Virus Vaccine Quad .5 mL IM 6+ MO 2020-02-17 00:00:00 Completed [facility] Influenza Virus Vaccine Quad .5 mL IM 6+ MO 2020-02-17 00:00:00 Completed [facility] Influenza Virus Vaccine Quad .5 mL IM 6+ MO 2020-02-17 00:00:00 Completed [facility] Influenza Virus Vaccine Quad .5 mL IM 6+ MO 2020-02-17 00:00:00 Completed [facility] Influenza Virus Vaccine Quad .5 mL IM 6+ MO 2020-02-17 00:00:00 Completed [facility] Influenza Virus Vaccine Quad .5 mL IM 6+ MO 2020-02-17 00:00:00 Completed [facility] Influenza Virus Vaccine Quad .5 mL IM 6+ MO 2020-02-17 00:00:00 Completed [facility] Influenza Virus Vaccine Quad .5 mL IM 6+ MO 2020-02-17 00:00:00 Completed [facility] Influenza Virus Vaccine Quad .5 mL IM 6+ MO 2020-02-17 00:00:00 Completed [facility] Influenza Virus Vaccine Quad .5 mL IM 6+ MO 2020-02-17 00:00:00 Completed [facility] Influenza Virus Vaccine Quad .5 mL IM 6+ MO 2020-02-17 00:00:00 Completed [facility] Influenza Virus Vaccine Quad .5 mL IM 6+ MO 2020-02-17 00:00:00 Completed [facility] Influenza Virus Vaccine Quad .5 mL IM 6+ MO 2019-02-11 00:00:00 Completed [facility] Influenza Virus Vaccine Quad .5 mL IM 6+ MO 2019-02-11 00:00:00 Completed [facility] Influenza Virus Vaccine Quad .5 mL IM 6+ MO 2019-02-11 00:00:00 Completed [facility] Influenza Virus Vaccine Quad .5 mL IM 6+ MO 2019-02-11 00:00:00 Completed [facility] Influenza Virus Vaccine Quad .5 mL IM 6+ MO 2019-02-11 00:00:00 Completed [facility] Influenza Virus Vaccine Quad .5 mL IM 6+ MO 2019-02-11 00:00:00 Completed [facility] Influenza Virus Vaccine Quad .5 mL IM 6+ MO 2019-02-11 00:00:00 Completed [facility] Influenza Virus Vaccine Quad .5 mL IM 6+ MO 2019-02-11 00:00:00 Completed [facility] Influenza Virus Vaccine Quad .5 mL IM 6+ MO 2019-02-11 00:00:00 Completed [facility] Influenza Virus Vaccine Quad .5 mL IM 6+ MO 2019-02-11 00:00:00 Completed [facility] Influenza Virus Vaccine Quad .5 mL IM 6+ MO 2019-02-11 00:00:00 Completed [facility] Influenza Virus Vaccine Quad .5 mL IM 6+ MO 2019-02-11 00:00:00 Completed [facility] Influenza Virus Vaccine Quad .5 mL IM 6+ MO 2019-02-11 00:00:00 Completed [facility] Influenza Virus Vaccine Quad .5 mL IM 6+ MO 2019-02-11 00:00:00 Completed [facility] TDAP (ADACEL) VACCINE 2018-12-17 00:00:00 Completed [facility] TDAP (ADACEL) VACCINE 2018-12-17 00:00:00 Completed [facility] TDAP (ADACEL) VACCINE 2018-12-17 00:00:00 Completed [facility] TDAP (ADACEL) VACCINE 2018-12-17 00:00:00 Completed [facility] TDAP (ADACEL) VACCINE 2018-12-17 00:00:00 Completed [facility] TDAP (ADACEL) VACCINE 2018-12-17 00:00:00 Completed [facility] TDAP (ADACEL) VACCINE 2018-12-17 00:00:00 Completed [facility] TDAP (ADACEL) VACCINE 2018-12-17 00:00:00 Completed [facility] TDAP (ADACEL) VACCINE 2018-12-17 00:00:00 Completed [facility] TDAP (ADACEL) VACCINE 2018-12-17 00:00:00 Completed [facility] TDAP (ADACEL) VACCINE 2018-12-17 00:00:00 Completed [facility] TDAP (ADACEL) VACCINE 2018-12-17 00:00:00 Completed [facility] TDAP (ADACEL) VACCINE 2018-12-17 00:00:00 Completed [facility] TDAP (ADACEL) VACCINE 2018-12-17 00:00:00 Completed [facility] HPV9 2015-12-03 00:00:00 Completed [facility] HPV9 2015-12-03 00:00:00 Completed [facility] Influenza Virus Vaccine Quad .5 mL IM 6+ MO 2014-02-17 00:00:00 Completed [facility] Influenza Virus Vaccine Quad .5 mL IM 6+ MO 2014-02-17 00:00:00 Completed [facility] HPV 2013-10-24 00:00:00 Completed [facility] Meningococcal Polysaccharide (groups A, C, Y and W-135) conjugate vaccine (MCV4P) 2013-10-24 00:00:00 Completed [facility] TDAP 2013-10-24 00:00:00 Completed [facility] Varicella (varivax)(chicken pox) 2013-10-24 00:00:00 Completed [facility] HPV 2013-10-24 00:00:00 Completed [facility] Meningococcal Polysaccharide (groups A, C, Y and W-135) conjugate vaccine (MCV4P) 2013-10-24 00:00:00 Completed [facility] TDAP 2013-10-24 00:00:00 Completed [facility] Varicella (varivax)(chicken pox) 2013-10-24 00:00:00 Completed [facility] HEPATITIS A 2005-02-04 00:00:00 Completed [facility] Pneumococcal 7 Conjugate, PCV7 (Prevnar7) 2005-02-04 00:00:00 Completed [facility] HEPATITIS A 2005-02-04 00:00:00 Completed [facility] Pneumococcal 7 Conjugate, PCV7 (Prevnar7) 2005-02-04 00:00:00 Completed [facility] DTaP, Unspecified Formulation 2004-01-10 00:00:00 Completed [facility] HIB 4 Dose Schedule 2004-01-10 00:00:00 Completed [facility] IPV 2004-01-10 00:00:00 Completed [facility] DTaP, Unspecified Formulation 2004-01-10 00:00:00 Completed [facility] HIB 4 Dose Schedule 2004-01-10 00:00:00 Completed [facility] IPV 2004-01-10 00:00:00 Completed [facility] MMR 2003-02-08 00:00:00 Completed [facility] Varicella (varivax)(chicken pox) 2003-02-08 00:00:00 Completed [facility] MMR 2003-02-08 00:00:00 Completed [facility] Varicella (varivax)(chicken pox) 2003-02-08 00:00:00 Completed [facility] Pneumococcal 7 Conjugate, PCV7 (Prevnar7) 2002 00:00:00 Completed [facility] Pneumococcal 7 Conjugate, PCV7 (Prevnar7) 2002 00:00:00 Completed [facility] DTaP, Unspecified Formulation 2002 00:00:00 Completed [facility] HIB 4 Dose Schedule 2002 00:00:00 Completed [facility] Pneumococcal 7 Conjugate, PCV7 (Prevnar7) 2002 00:00:00 Completed [facility] IPV 2002 00:00:00 Completed [facility] DTaP, Unspecified Formulation 2002 00:00:00 Completed [facility] HIB 4 Dose Schedule 2002 00:00:00 Completed [facility] Pneumococcal 7 Conjugate, PCV7 (Prevnar7) 2002 00:00:00 Completed [facility] IPV 2002 00:00:00 Completed [facility] Hep B, Adol or Pedi Dosage 2002 00:00:00 Completed [facility] Hep B, Adol or Pedi Dosage 2002 00:00:00 Completed [facility] TDAP (ADACEL) VACCINE Unknown Completed [facility] Influenza Virus Vaccine Quad .5 mL IM 6+ MO (FLUZONE/FLULAVAL/FL UARIX) Unknown Completed [facility] Influenza Virus Vaccine Quad .5 mL IM 6+ MO (FLUZONE/FLULAVAL/FL UARIX) Unknown Completed [facility] TDAP Unknown Completed [facility] DTaP, Unspecified Formulation Unknown Completed [facility] DTaP, Unspecified Formulation Unknown Completed [facility] Influenza Virus Vaccine Quad .5 mL IM 6+ MO (FLUZONE/FLULAVAL/FL UARIX) Unknown Completed [facility] HEPATITIS A Unknown Completed [facility] Hep B, Adol or Pedi Dosage Unknown Completed [facility] HIB 4 Dose Schedule Unknown Completed [facility] HIB 4 Dose Schedule Unknown Completed [facility] HPV Unknown Completed [facility] HPV9 Unknown Completed [facility] Meningococcal Polysaccharide (groups A, C, Y and W-135) conjugate vaccine (MCV4P) Unknown Completed [facility] MMR Unknown Completed [facility] Pneumococcal 7 Conjugate, PCV7 (Prevnar7) Unknown Completed [facility] Pneumococcal 7 Conjugate, PCV7 (Prevnar7) Unknown Completed [facility] Pneumococcal 7 Conjugate, PCV7 (Prevnar7) Unknown Completed [facility] IPV Unknown Completed [facility] IPV Unknown Completed [facility] TDAP Unknown Completed [facility] Varicella (varivax)(chicken pox) Unknown Completed [facility] Varicella (varivax)(chicken pox) Unknown Completed [facility] TDAP (ADACEL) VACCINE Unknown Completed [facility] Influenza Virus Vaccine Quad .5 mL IM 6+ MO (FLUZONE/FLULAVAL/FL UARIX) Unknown Completed [facility] Influenza Virus Vaccine Quad .5 mL IM 6+ MO (FLUZONE/FLULAVAL/FL UARIX) Unknown Completed [facility] TDAP Unknown Completed [facility] HPV9 Unknown Completed [facility] HPV9 Unknown Completed [facility] DTaP, Unspecified Formulation Unknown Completed [facility] DTaP, Unspecified Formulation Unknown Completed [facility] Influenza Virus Vaccine Quad .5 mL IM 6+ MO (FLUZONE/FLULAVAL/FL UARIX) Unknown Completed [facility] HEPATITIS A Unknown Completed [facility] Hep B, Adol or Pedi Dosage Unknown Completed [facility] HIB 4 Dose Schedule Unknown Completed [facility] HIB 4 Dose Schedule Unknown Completed [facility] HPV Unknown Completed [facility] HPV9 Unknown Completed [facility] Meningococcal Polysaccharide (groups A, C, Y and W-135) conjugate vaccine (MCV4P) Unknown Completed [facility] MMR Unknown Completed [facility] Pneumococcal 7 Conjugate, PCV7 (Prevnar7) Unknown Completed [facility] Pneumococcal 7 Conjugate, PCV7 (Prevnar7) Unknown Completed [facility] Pneumococcal 7 Conjugate, PCV7 (Prevnar7) Unknown Completed [facility] IPV Unknown Completed [facility] IPV Unknown Completed [facility] TDAP Unknown Completed [facility] Varicella (varivax)(chicken pox) Unknown Completed [facility] Varicella (varivax)(chicken pox) Unknown Completed [facility] TDAP (ADACEL) VACCINE Unknown Completed [facility] Influenza Virus Vaccine Quad .5 mL IM 6+ MO (FLUZONE/FLULAVAL/FL UARIX) Unknown Completed [facility] Influenza Virus Vaccine Quad .5 mL IM 6+ MO (FLUZONE/FLULAVAL/FL UARIX) Unknown Completed [facility] TDAP Unknown Completed [facility] HPV9 Unknown Completed [facility] HPV9 Unknown Completed [facility] DTaP, Unspecified Formulation Unknown Completed [facility] DTaP, Unspecified Formulation Unknown Completed [facility] Influenza Virus Vaccine Quad .5 mL IM 6+ MO (FLUZONE/FLULAVAL/FL UARIX) Unknown Completed [facility] HEPATITIS A Unknown Completed [facility] Hep B, Adol or Pedi Dosage Unknown Completed [facility] HIB 4 Dose Schedule Unknown Completed [facility] HIB 4 Dose Schedule Unknown Completed [facility] HPV Unknown Completed [facility] HPV9 Unknown Completed [facility] Meningococcal Polysaccharide (groups A, C, Y and W-135) conjugate vaccine (MCV4P) Unknown Completed [facility] MMR Unknown Completed [facility] Pneumococcal 7 Conjugate, PCV7 (Prevnar7) Unknown Completed [facility] Pneumococcal 7 Conjugate, PCV7 (Prevnar7) Unknown Completed [facility] Pneumococcal 7 Conjugate, PCV7 (Prevnar7) Unknown Completed [facility] IPV Unknown Completed [facility] IPV Unknown Completed [facility] TDAP Unknown Completed [facility] Varicella (varivax)(chicken pox) Unknown Completed [facility] Varicella (varivax)(chicken pox) Unknown Completed [facility] Vital Signs Vital Name Observation Time Observation Value Comments S ource Systolic blood pressure 2023-02-17 18:31:00 110 mm[Hg] [facility] Diastolic blood pressure 2023-02-17 18:31:00 72 mm[Hg] [facility] Heart rate 2023-02-17 18:31:00 86 /min [facility] Body temperature 2023-02-17 18:31:00 36.5 Karen [facility] Respiratory rate 2023-02-17 18:31:00 17 /min [facility] Body height 2023-02-17 18:31:00 149.9 cm [facility] Body weight 2023-02-17 18:31:00 75.025 kg [facility] BMI 2023-02-17 18:31:00 33.41 kg/m2 [facility] Systolic blood pressure 2022-07-09 19:52:00 103 mm[Hg] [facility] Diastolic blood pressure 2022-07-09 19:52:00 68 mm[Hg] [facility] Heart rate 2022-07-09 19:52:00 81 /min [facility] Body temperature 2022-07-09 19:52:00 36.94 Karen [facility] Respiratory rate 2022-07-09 19:52:00 18 /min [facility] Body height 2022-07-09 19:52:00 149.9 cm [facility] Body weight 2022-07-09 19:52:00 73.392 kg [facility] BMI 2022-07-09 19:52:00 32.68 kg/m2 [facility] Systolic blood pressure 2022-06-11 15:45:00 120 mm[Hg] [facility] Diastolic blood pressure 2022-06-11 15:45:00 75 mm[Hg] [facility] Heart rate 2022-06-11 15:45:00 85 /min [facility] Body temperature 2022-06-11 15:45:00 36.61 Karen [facility] Respiratory rate 2022-06-11 15:45:00 18 /min [facility] Body height 2022-06-11 15:45:00 149.9 cm [facility] Body weight 2022-06-11 15:45:00 70.943 kg [facility] BMI 2022-06-11 15:45:00 31.59 kg/m2 [facility] Systolic blood pressure 2021-08-30 19:04:00 123 mm[Hg] [facility] Diastolic blood pressure 2021-08-30 19:04:00 85 mm[Hg] [facility] Heart rate 2021-08-30 19:04:00 96 /min [facility] Body temperature 2021-08-30 19:04:00 35.67 Karen [facility] Body height 2021-08-30 19:04:00 149.9 cm [facility] Body weight 2021-08-30 19:04:00 75.116 kg [facility] BMI 2021-08-30 19:04:00 33.45 kg/m2 [facility] Body mass index (BMI) [Percentile] Per age and sex 2021-08-30 19:04:00 96.41 % [facility] Procedures Procedure Date / Time Performed Performing Clinicia n Source POCT TEST 2022-07-09 19:54:00 Earl Henao [facility] PATIENT FINANCIAL POLICY 2022-07-09 19:38:04 Doctor Unassigned, [place] [facility] POCT TEST 2022-06-11 16:16:00 Earl Henao [facility] ASSIGNMENT OF BENEFITS 2022-06-11 15:19:02 Docto r Unassigned, [place] [facility] DISCLOSURE AND CONSENT, MEDICAL AND SURGICAL PROCEDURES 2021-08-30 05:01:00 Doctor Unassigned, [place] [facility] Encounters Start Date/Time End Date/Time Encounter Type Admission Type Attending [facility] Care Department Encounter ID Source 2021-03-03 16:31:27 Emergency [facility] [id number] [facility] 2021-03-02 07:53:51 Outpatient P [facility] [id number] [facility] 2021-03-02 07:53:31 Outpatient P [facility] [id number] [facility] 2021-03-02 04:35:47 Outpatient P [facility]H [id number] [facility] 2023-07-13 14:30:00 2023-07-13 14:30:00 Outpatient R URMILA HENAO [facility] [id number] [facility] 2023-02-17 13:30:00 2023-02-17 13:57:49 Outpatient R URMILA HENAO [facility] [id number] [facility] 2023-02-17 13:30:00 2023-02-17 13:57:49 Office Visit Urmila Henao [facility] 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 [facility] [phone] 4.2.7.2.686 [id number] [facility] 2022-12-10 08:15:00 2022-12-10 08:15:00 Outpatient R URMILA HENAO [facility] [id number] [facility] 2022-10-15 13:30:00 2022-10-15 13:30:00 Outpatient R URMILA HENAO [facility] [id number] [facility] 2022-08-20 08:00:00 2022-08-20 08:00:00 Outpatient R URMILA HENAO [facility] [id number] [facility] 2022-07-09 13:45:00 2022-07-09 14:37:02 Outpatient R URMILA HENAO [facility] [id number] [facility] 2022-07-09 13:45:00 2022-07-09 14:37:02 Office Visit Urmila Henao [facility] 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 [facility] 1.840.114 350.1.13.10 4.2.7.2.686 [id number] [facility] 2022-07-09 00:00:00 2022-07-09 00:00:00 Orders Only Doctor Unassigned, [place] [facility] 1.840.114 350.1.13.10 4.2.7.2.686 [id number] [facility] 2022-06-11 09:30:00 2022-06-11 10:17:06 Outpatient R URMILA HENAO [facility] [id number] [facility] 2022-06-11 09:30:00 2022-06-11 10:17:06 Office Visit Urmila Henao [facility] 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 [facility] 1.840.114 350.1.13.10 4.2.7.2.686 [id number] [facility] 2022-06-11 00:00:00 2022-06-11 00:00:00 Orders Only Doctor Unassigned, [place] [facility] 1.840.114 350.1.13.10 4.2.7.2.686 [id number] [facility] 2022-04-16 00:00:00 2022-04-16 00:00:00 Catalina Bonilla [facility] .0.114 350.1.13.10 4.2.7.2.686 [id number] [facility] 2022-02-19 09:30:00 2022-02-19 09:30:00 Outpatient R URMILA HENAO [facility] [id number] [facility] 2021-12-18 15:00:00 2021-12-18 15:00:00 Outpatient R [facility] [id number] [facility] 2021-12-16 00:00:00 2021-12-16 00:00:00 Telephone Nurse, Arnaldo Rmchp Exp Cprit Obgyn [facility] 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 [facility] ..840.114 350.1.13.10 4.2.7.2.686 [id number] [facility] 2021-12-05 15:30:00 2021-12-05 15:30:00 Outpatient R [facility] [id number] [facility] 2021-12-04 15:00:00 2021-12-04 15:00:00 Outpatient R URMILA HENAO [facility] [id number] [facility] 2021-12-04 00:00:00 2021-12-04 00:00:00 Telephone Urmila Henao [facility] 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 [facility] .840.114 350.1.13.10 4.2.7.2.686 [id number] [facility] 2021-11-29 09:00:00 2021-11-29 09:00:00 Outpatient R URMILA HENAO [facility] [id number] [facility] 2021-11-06 13:00:00 2021-11-06 13:00:00 Outpatient R URMILA HENAO [facility] [id number] [facility] 2021-08-30 13:30:00 2021-08-30 14:53:54 Outpatient R CATALINA SCOTT EMILY [facility] [id number] [facility] 2021-08-30 13:30:00 2021-08-30 14:53:54 Office Visit Provider, [facility] Catalina Harding [facility] 1.2840.114 350.1.13.10 4.2.7.2.686 [id number] [facility] 2021-08-30 00:00:00 2021-08-30 00:00:00 Orders Only Doctor Unassigned, [place] [facility] 1.2.840.114 350.1.13.10 4.2.7.2.686 [id number] [facility] 2021-08-25 00:00:00 2021-08-25 00:00:00 Telephone Pgy1 [facility] 1.2.840.114 350.1.13.10 4.2.7.2.686 [id number] [facility] 2021-08-08 10:00:00 2021-08-08 11:17:38 [facility]..[facility].114 350.1.13.10 4.2.7.2.686 [id number] [facility] 2021-08-08 10:00:00 2021-08-08 11:17:38 Outpatient R GIO ELLIS [facility] [id number] [facility] 2021-08-08 10:00:00 2021-08-08 11:17:38 Outpatient R IGO ELLIS [facility] [id number] [facility] 2021-08-08 10:00:00 2021-08-08 10:00:00 Outpatient R GIO ELLIS [facility] [id number] [facility] 2021-08-08 00:00:00 2021-08-08 00:00:00 Orders Only Doctor Unassigned, [place] [facility] 1..114 350.1.13.10 4.2.7.2.686 [id number] [facility] 2021-07-25 09:00:00 2021-07-25 09:00:00 Outpatient R MORE HOWARD [facility] [id number] [facility] 2021-07-25 00:00:00 2021-07-25 00:00:00 Telephone Pgy2 [facility] 1..114 350.1.13.10 4.2.7.2.686 [id number] [facility] 2021-07-24 09:45:00 2021-07-24 09:45:00 Outpatient R URMILA HENAO [facility] [id number] [facility] 2021-07-03 13:45:00 2021-07-03 15:07:17 Office Visit Urmila Henao [facility] 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 [facility] 1.840.114 350.1.13.10 4.2.7.2.686 [id number] [facility] 2021-07-03 13:45:00 2021-07-03 15:07:17 Outpatient R URMILA HENAO [facility] [id number] [facility] 2021-07-03 13:45:00 2021-07-03 13:45:00 Outpatient R URMILA HENAO [facility] [id number] [facility] 2021-07-03 00:00:00 2021-07-03 00:00:00 Letter (Out) Urmila Henao [facility] 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 [facility] .840.114 350.1.13.10 4.2.7.2.686 [id number] [facility] 2021-07-02 00:00:00 2021-07-02 00:00:00 Telephone Urmila Henao [facility] 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 [facility] 1.20.114 350.1.13.10 4.2.7.2.686 [id number] [facility] 2021-05-10 19:15:00 2021-05-10 19:30:00 Laboratory Only Only, Ang Db Test Sathya [facility] 1..114 350.1.13.10 4.2.7.2.686 [id number] [facility] 2021-05-10 19:15:00 2021-05-10 19:15:00 Outpatient R SATHYA [facility] [id number] [facility] 2021-05-03 13:59:00 2021-05-03 15:08:00 Emergency CHRIS COLEY [facility] [id number] [facility] 2021-05-03 13:59:00 2021-05-03 15:08:00 Emergency Hightower, Chris R [facility] 1..114 350.1.13.10 4.2.7.2.686 [id number] [facility] 2021-05-03 00:00:00 2021-05-03 00:00:00 Orders Only Doctor Unassigned, [place] [facility] 1..114 350.1.13.10 4.2.7.2.686 [id number] [facility] 2021-04-19 21:34:00 2021-04-19 22:26:00 Emergency X VAISHNAVI YEE [facility] [id number] [facility] 2021-04-19 21:34:00 2021-04-19 22:26:00 Emergency Vaishnavi Yee [facility] 1.2.840.114 350.1.13.10 4.2.7.2.686 [id number] [facility] 2020-12-31 08:15:00 2020-12-31 08:15:00 Outpatient R TATIANNAMORRIS URMILA [facility] [id number] [facility] 2020-12-19 17:00:00 2020-12-19 17:00:00 Outpatient R FELIZ TAY [facility] [id number] [facility] 2020-10-11 15:45:00 2020-10-11 15:45:00 Outpatient R AKINSIHANK URMILA [facility] [id number] [facility] 2020-10-08 09:30:00 2020-10-08 09:30:00 Outpatient R AKINSIPE URMILA [facility] [id number] [facility] 2020-09-18 15:15:00 2020-09-18 15:15:00 Outpatient R AKINSIPE, URMILA [facility] [id number] [facility] 2020-09-04 16:00:00 2020-09-04 16:00:00 Outpatient R AKINSIPE URMILA [facility] [id number] [facility] 2020-08-29 15:45:00 2020-08-29 15:45:00 Outpatient R [facility] [id number] [facility] 2020-08-27 10:45:00 2020-08-27 10:45:00 Outpatient R AKINSIPE, URMILA [facility] [id number] [facility] 2020-08-24 13:15:00 2020-08-24 13:15:00 Outpatient R AKINSIPE, URMILA [facility] [id number] [facility] 2020-08-09 15:15:00 2020-08-09 15:15:00 Outpatient R AKINSIPE, URMILA [facility] [id number] [facility] 2020-06-28 09:30:00 2020-06-28 09:30:00 Outpatient R URMILA HENAO [facility] [id number] [facility] 2020-06-07 09:29:24 2020-06-07 10:11:02 Routine Visit Urmila Henao [facility] 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 [facility] 1..840.114 350.1.13.10 4.2.7.2.686 [id number] 2020-06-07 09:30:00 2020-06-07 09:30:00 Outpatient R URMILA HENAO [facility] [id number] [facility] 2020-05-24 11:00:00 2020-05-24 11:00:00 Outpatient R URMILA HENAO [facility] [id number] [facility] 2020-05-22 00:00:00 2020-05-22 00:00:00 Patient Secure Msg Doctor Unassigned, [place] [facility] 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 [facility] 1.840.114 350.1.13.10 4.2.7.2.686 [id number] [facility] 2020-05-17 15:09:00 2020-05-19 20:26:00 Hospital Encounter Cora Garcia [facility] 1.84.114 350.1.13.10 4.2.7.2.686 [id number] 2020-05-17 15:30:00 2020-05-17 15:30:00 Outpatient R URMILA HENAO [facility] [id number] [facility] 2020-05-17 13:00:13 2020-05-17 13:42:47 Routine Visit Urmila Henao [facility] 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 [facility] 1.840.114 350.1.13.10 4.2.7.2.686 [id number] 2020-05-10 11:00:00 2020-05-10 11:00:00 Outpatient R AKINSIURMILA MCKINNEY [facility] [id number] [facility] 2020-04-24 16:00:00 2020-04-24 16:00:00 Outpatient R AKINSIPEURMILA [facility] [id number] [facility] 2020-04-24 14:15:00 2020-04-24 14:15:00 Outpatient R AKINSIPEURMILA [facility] [id number] [facility] 2020-04-11 12:45:00 2020-04-11 12:45:00 Outpatient R AKINSIPEURMILA [facility] [id number] [facility] 2020-03-27 15:00:00 2020-03-27 15:00:00 Outpatient R AKINSIPEURMILA [facility] [id number] [facility] 2020-03-16 15:00:00 2020-03-16 15:00:00 Outpatient R AKINSIPEURIMLA [facility] [id number] [facility] 2020-03-08 11:30:00 2020-03-08 11:30:00 Outpatient P [facility] [id number] [facility] 2020-03-02 11:00:00 2020-03-02 11:00:00 Outpatient R AKINSIPEURMILA [facility] [id number] [facility] 2020-02-17 10:45:00 2020-02-17 10:45:00 Outpatient R AKINSIPEURMILA [facility] [id number] [facility] 2020-01-20 14:15:00 2020-01-20 14:15:00 Outpatient R AKINSIPEURMILA [facility] [id number] [facility] 2020-01-17 13:00:00 2020-01-17 13:00:00 Outpatient P [facility] [id number] [facility] 2020-01-16 10:45:00 2020-01-16 10:45:00 Outpatient P [facility] [id number] [facility] 2020-01-12 10:45:00 2020-01-12 10:45:00 Outpatient P [facility] [id number] [facility] 2019-12-23 14:00:00 2019-12-23 14:00:00 Outpatient R URMILA HENAO [facility] [id number] [facility] 2019-12-02 11:30:00 2019-12-02 11:30:00 Outpatient P [facility] [id number] [facility] 2019-11-25 13:00:00 2019-11-25 13:00:00 Outpatient R URMILA HENAO [facility] [id number] [facility] 2019-11-18 09:00:00 2019-11-18 09:00:00 Outpatient R KESHIA HARRISON [facility] [id number] [facility] Results Test Description Test Time Test Comments Results Result Co mments Source [facility] [id number] 19:54:00* Test Item Value Reference Range Interpretation Comme [facility] POCT PREG (test code = 1605) Negative On board controls acceptable with C Line (test code = 3574) Yes POCT PREG LOT # (test code = 3575) POCT PREG TEST DATE ( test code = 3576) [facility] [id number] 16:17:00* Test Item Value Reference Range Interpretation Comme nts POCT PREG (test code = 1605) Negative On board controls acceptable with C Line (test code = 3574) Yes POCT PREG LOT # (test code = 3575) POCT PREG TEST DATE ( test code = 3576) [facility] [id number] 16:17:00* Test Item Value Reference Range Interpretation Comme nts POCT PREG (test code = 1605) Negative On board controls acceptable with C Line (test code = 3574) Yes POCT PREG LOT # (test code = 3575) POCT PREG TEST DATE ( test code = 3576[id number] 16:17:00* Test Item Value Reference Range Interpretation Comme nts POCT PREG (test code = 1605) Negative On board controls acceptable with C Line (test code = 3574) Yes POCT PREG LOT # (test code = 3575) PO[facility]REG TEST DATE ( test code = 3576[id number] 16:17:00* Test Item Value Reference Range Interpretation Comme nts POCT PREG (test code = 1605) Negative On board controls acceptable with C Line (test code = 3574) Yes POCT PREG LOT # (test code = 3575) POCT PREG TEST DATE ( test code = 3576) [facility]
--- NOTE | 2023-11-07 02:13 | EDPHYS ---
Physician Documentation [facility] Name: Gianna Haines Age: 23 yrs Sex: Female : 2000 Arrival Date: 11/07/2023 Time: 00:30 Bed IW4 Private MD: ED Physician Jeronimo Bashir HPI: 11/06 01:40 This 23 yrs old Female presents to ER via Ambulatory with complaints of cp Foreign Body In Ear. 01:40 The patient presents with a foreign body sensation, cotton tip from a q-tip, pain. The cp complaints affect the left ear. Onset: The symptoms/episode began/occurred at an unknown time. Associated signs and symptoms: Pertinent negatives: cough, fever, sore throat, vomiting. Severity of symptoms: in the emergency department the symptoms are unchanged despite home interventions. Historical: - Allergies: 01:44 No Known Allergies; vc1 - Home Meds: 01:44 None [Active]; vc1 - PMHx: 01:44 Asthma; vc1 - PSHx: 01:44 section; vc1 - Immunization history:: Client reports having NOT received the Covid vaccine. - Infectious Disease History:: Denies. - Social history:: Smoking status: Patient denies any tobacco usage or history of. ROS: 01:45 ENT: Positive for ear pain, foreign body sensation, hearing loss, cp 01:45 Eyes: Negative for injury, pain, redness, and discharge, cp 01:45 Constitutional: Negative for body aches, chills, fever, 01:45 Cardiovascular: Negative for chest pain, edema, palpitations, 01:45 Respiratory: Negative for cough, shortness of breath, wheezing, 01:45 Abdomen/GI: Negative for abdominal pain, nausea, vomiting, and diarrhea, 01:45 Skin: Negative for rash, 01:45 Neuro: Negative for altered mental status, dizziness, headache, weakness, 01:45 All other systems are negative, Exam: 01:50 Constitutional: The patient appears in no acute distress, alert, awake, non-toxic, well cp developed, well nourished, 01:50 Head/Face: Normocephalic, atraumatic. cp 01:50 Eyes: Periorbital structures: appear normal, Conjunctiva: normal, no exudate, no injection, Sclera: no appreciated abnormality, Lids and lashes: appear normal, bilaterally, 01:50 ENT: External ear(s): pain with movement, that is mild, of the left ear canal, Ear canal(s): foreign body, yellow colored piece of cotton, in the left external ear canal, swelling, that is minimal, of the left canal, TM's: erythema, that is mild, bilaterally, Nose: is normal, Mouth: Lips: moist, Oral mucosa: pink and intact, moist, Posterior pharynx: Airway: no evidence of obstruction, patent, 01:50 Neck: ROM/movement: is normal, is supple, without pain, no range of motions limitations, 01:50 Cardiovascular: Rate: normal, 01:50 Respiratory: the patient does not display signs of respiratory distress, Respirations: normal, Breath sounds: are clear throughout, Vital Signs: 01:39 BP 118 / 79; Pulse 89; Resp 15; Temp 98.2; Pulse Ox 100% ; Weight 77.11 kg; Height 4 vc1 ft. 11 in. ; 02:45 BP 114 / 78; Pulse 88; Resp 15; Pulse Ox 100% ; vc1 01:39 Body Mass Index 34.34 (77.11 kg, 149.86 cm) vc1 Procedures: 02:15 Foreign Body Removal: piece of cotton, from the left ear canal, by using alligator cp clamps, The patient tolerated the removal well. MDM: 01:37 Patient medically screened. cp 01:37 Differential diagnosis: otitis media, otitis externa, ruptured TM, foreign body, cp cerumen impaction. 02:11 Data reviewed: vital signs, nurses notes, and as a result, I will discharge patient. cp 02:11 Counseling: I had a detailed discussion with the patient and/or guardian regarding the cp historical points, exam findings, and any diagnostic results supporting the discharge/admit diagnosis, to return to the emergency department if symptoms worsen or persist or if there are any questions or concerns that arise at home. Response to treatment: the patient's symptoms have markedly improved after treatment, foreign body removed, and as a result, I will discharge patient. Administered Medications: No medications were administered Disposition: 07:50 Co-signature as Attending Physician, Jeronimo Bashir MD I agree with the assessment and sue plan of care. Disposition Summary: 11/07/23 02:12 Discharge Ordered Notes: Location: Home cp Problem: new cp Symptoms: have improved cp Condition: Stable cp Diagnosis - Acute serous otitis media, left ear cp - Foreign body in left ear, initial encounter cp Followup: cp - With: Dee Dee Calzada MD - When: 1 week - Reason: pain continues Discharge Instructions: - Discharge Summary Sheet cp - Ear Foreign Body cp - Otitis Media, Adult cp Forms: - Medication Reconciliation Form cp - Antibiotic Education cp - Prescription Opioid Use cp - Patient Portal Instructions cp - Leadership Thank You Letter cp Prescriptions: - cefdinir 300 mg Oral capsule - take 1 capsule ORAL route every 12 hours; 20 capsule; Refills: 0, Product cp Selection Permitted - Ciprodex 0.3-0.1 % Otic drops, suspension - instill 4 drops OTIC route every 12 hours for 7 days , for ears ONLY; 1 unit; cp Refills: 0, Product Selection Permitted Signatures: Jeronimo Bashir MD MD cha Page, Corey, PA PA cp Erica Carreon RN RN vc1 Corrections: (The following items were deleted from the chart) 18:40 18:39 Foreign Body Removal: piece of cotton, from the left ear canal, by using cp alligator clamps, The patient tolerated the removal well, cp
--- NOTE | 2023-11-07 02:13 | ER ---
Nurse's Notes [facility] Name: Gianna Haines Age: 23 yrs Sex: Female : 2000 Arrival Date: 11/07/2023 Time: 00:30 Bed IW4 Private MD: Diagnosis: Acute serous otitis media, left ear;Foreign body in left ear, initial encounter Presentation: 11/06 01:39 Chief complaint: Patient states: I have a cotton swab or something stuck in my ear. vc1 Coronavirus screen: Client denies travel out of the [place] in the last 14 days. At this time, the client does not indicate any symptoms associated with coronavirus-19. Ebola Screen: Patient negative for fever greater than or equal to 101.5 degrees Fahrenheit, and additional compatible Ebola Virus Disease symptoms Patient denies exposure to infectious person. Patient denies travel to an Ebola-affected area in the 21 days before illness onset. No symptoms or risks identified at this time. Initial Sepsis Screen: Does the patient meet any 2 criteria? No. Patient's initial sepsis screen is negative. Does the patient have a suspected source of infection? No. Patient's initial sepsis screen is negative. Risk Assessment: Do you want to hurt yourself or someone else? Patient reports no desire to harm self or others. Note Been like this for 4 weeks. Onset of symptoms is unknown. 01:39 Method Of Arrival: Ambulatory vc1 01:39 Acuity: FLIP 4 vc1 Triage Assessment: 01:45 General: Appears in no apparent distress. uncomfortable, slender, Behavior is calm, vc1 cooperative, appropriate for age. Pain: Complains of pain in left ear Pain currently is 8 out of 10 on a pain scale. Quality of pain is described as sharp. EENT: Ear canal w/ foreign body noted from left ear Reports pain in left ear. Neuro: Level of Consciousness is awake, alert, obeys commands, Oriented to person, place, time, situation, Appropriate for age. Cardiovascular: No deficits noted. Capillary refill < 3 seconds Patient's skin is warm and dry. Respiratory: Airway is patent Respiratory effort is even, unlabored, Respiratory pattern is regular, symmetrical, Breath sounds are clear bilaterally. GI: Abdomen is flat, non-distended, Bowel sounds present X 4 quads. : No deficits noted. No signs and/or symptoms were reported regarding the genitourinary system. Derm: Skin is intact, is healthy with good turgor, Skin is dry, Skin is normal, Skin temperature is warm. Musculoskeletal: No deficits noted. No signs and/or symptoms reported regarding the musculoskeletal system. Historical: - Allergies: 01:44 No Known Allergies; vc1 - Home Meds: :44 None [Active]; vc1 - PMHx: :44 Asthma; vc1 - PSHx: :44 section; vc1 - Immunization history:: Client reports having NOT received the Covid vaccine. - Infectious Disease History:: Denies. - Social history:: Smoking status: Patient denies any tobacco usage or history of. Screenin:35 [facility] ED Fall Risk Assessment (Adult) History of falling in the last 3 months, vc1 including since admission No falls in past 3 months (0 pts) Confusion or Disorientation No (0 pts) Intoxicated or Sedated No (0 pts) Impaired Gait No (0 pts) Mobility Assist Device Used No (0 pt) Altered Elimination No (0 pt) Score/Fall Risk Level 0 - 2 = Low Risk Oriented to surroundings, Maintained a safe environment, Educated pt \T\ family on fall prevention, incl call for assistance when getting out of bed. Abuse screen: Denies threats or abuse. Nutritional screening: No deficits noted. Tuberculosis screening: No symptoms or risk factors identified. Assessment: 02:45 Reassessment: Patient and/or family updated on plan of care and expected duration. Pain vc1 level reassessed. Patient is alert, oriented x 3, equal unlabored respirations, skin warm/dry/pink. Patient states feeling better. Patient states symptoms have improved. Vital Signs: 01:39 BP 118 / 79; Pulse 89; Resp 15; Temp 98.2; Pulse Ox 100% ; Weight 77.11 kg; Height 4 vc1 ft. 11 in. ; 02:45 BP 114 / 78; Pulse 88; Resp 15; Pulse Ox 100% ; vc1 01:39 Body Mass Index 34.34 (77.11 kg, 149.86 cm) vc1 ED Course: 00:32 Patient arrived in ED. mg5 00:36 Jeronimo Madsen PA is PHCP. cp 00:36 Jeronimo Bashir MD is Attending Physician. cp 01:35 Assisted provider with: removed cotton from ear. vc1 01:44 Triage completed. vc1 01:44 Arm band placed on right wrist. vc1 02:10 Dee Dee Calzada MD is Referral Physician. cp 02:46 Patient did not have IV access during this emergency room visit. vc1 Administered Medications: No medications were administered Medication: 02:43 VIS not applicable for this client. vc1 Outcome: 02:12 Discharge ordered by . cp 02:46 Discharged to home ambulatory, vc1 02:46 Condition: good 02:46 Discharge instructions given to patient, Instructed on discharge instructions, follow up and referral plans. medication usage, Demonstrated understanding of instructions, follow-up care, medications, Prescriptions given X 2, 02:46 Patient left the ED. vc1 Signatures: Jeronimo Madsen PA PA cp Calcote, Vanessa, RN RN vc1 Kia Chavarria mg5
[2023-11-07 03:06] VITALS: BP 114/78; TEMP 98.2; O2SAT 100
== END 2023-11-07 02:46 | disposition home or self-care (01) ==
LOC: ER 00:30
PROC: 09C4XZZ Extirpation of Matter from Left External Auditory Canal, External Approach (ICD-10-PCS; principal; 2023-11-07)
DX: T16.2XXA Foreign body in left ear, initial encounter (principal); H65.02 Acute serous otitis media, left ear
CPT/HCPCS: 99283